=== PATIENT | male | born 1995 | race Caucasian/White ===

== ENCOUNTER 2020-05-16 02:33 | Emergency (ER) | payer MEDICAID, SELFPAY ==
[2020-05-16 02:35] VITALS: BP 181/85; PULSE 101; RESP 16; TEMP 36.6; O2SAT 99
--- NOTE | 2020-05-16 02:48 | ED.GENADULT ---
HPI - General Adult General Chief complaint: Dental/Oral Stated complaint: dental pain Time Seen by Provider: 05/16/20 02:43 History of Present Illness HPI narrative: Patient is a 25-year-old gentleman who presents the emergency department with chief complaint of right-sided dental pain. Patient states that he had 2 of his wisdom teeth come in and reports that the areas have become painful and he has pain in his right temporomandibular joint. Patient states the area feels swollen hurts whenever he chews. The patient denies fever denies chills denies nausea or vomiting. Related Data Allergies Allergy/AdvReac Type Severity Reaction Status Date / Time No Known Allergies Allergy Verified 05/16/20 02:45 Review of Systems Review of Systems: Narrative: A 10 system review of systems was completed on the patient and is negative except for what is stated in the HPI. Nursing and ancillary documentation was reviewed. PMFSH Comments Patient denies significant past medical history Social history the patient vapes Exam Narrative: Exam Narrative: GENERAL: Well-appearing, well-nourished, and in no acute distress. HEAD: Normocephalic, atraumatic. EYES: PERRLA and EOMI. ENT: Nares clear, no rhinorrhea or epistaxis. Mucous membranes moist. There are impacted wisdom teeth in the upper and lower molars on the right. There is tenderness to palpation of the right temporomandibular joint NECK: Supple. CHEST: Clear to auscultation. No respiratory distress. HEART: Regular rate and rhythm. No murmur heard. Normal peripheral pulses. ABDOMEN: Soft, nontender, nondistended, normal active bowel sounds. EXTREMITIES: Normal range of motion. No edema. SKIN: Warm, dry, no rash. NEURO: No focal deficits. Alert and oriented x3. PSYCH: Normal mood and affect. Course Vital Signs Vital signs: Vital Signs Temperature 36.6 C 05/16/20 02:35 Pulse Rate 101 H 05/16/20 02:35 Respiratory Rate 16 05/16/20 02:35 Blood Pressure 181/85 H 05/16/20 02:35 Pulse Oximetry 99 05/16/20 02:35 Temperature 36.6 C 05/16/20 02:35 Pulse Rate 101 H 05/16/20 02:35 Respiratory Rate 16 05/16/20 02:35 Blood Pressure 181/85 H 05/16/20 02:35 Pulse Oximetry 99 05/16/20 02:35 Medical Decision Making Vital Signs Vital Signs: Vital Signs Temperature 36.6 C 05/16/20 02:35 Pulse Rate 101 H 05/16/20 02:35 Respiratory Rate 16 05/16/20 02:35 Blood Pressure 181/85 H 05/16/20 02:35 Pulse Oximetry 99 05/16/20 02:35 Temperature 36.6 C 05/16/20 02:35 Pulse Rate 101 H 05/16/20 02:35 Respiratory Rate 16 05/16/20 02:35 Blood Pressure 181/85 H 05/16/20 02:35 Pulse Oximetry 99 05/16/20 02:35 Discharge Plan Discharge Clinical Impression: Toothache Patient Disposition: Home, Self-Care Condition: Stable Instructions: Antibiotic Form, Toothache (ED) Additional Instructions: Please follow-up with a dentist as soon as possible Prescriptions: New amoxicillin 500 mg capsule 500 mg PO Q12H Qty: 20 RF: 0 ibuprofen 800 mg tablet 800 mg PO TID PRN (Reason: pain) Qty: 30 RF: 0 Follow-up/Referrals: Cliff Cruz Jr., MD [Physician] - PHYSICIAN,ASSISTANT RESEARCH SCIENTIST [Primary Care Provider] - Time of Disposition: 02:51
[2020-05-16] MEDS: IBUPROFEN 400 MG TABLET 800 MG PO (02:52)
[2020-05-16] MEDS: HYDROcodone/acetaminophen (*CRX) 5-325 MG TABLET 1 TAB PO (02:53)
== END 2020-05-16 03:05 | disposition home or self-care (01) ==
LOC: ANHED 02:57
PROVIDERS: Emergency Provider Emergency Medicine
DX: K08.89 Other specified disorders of teeth and supporting structures (principal); F17.290 Nicotine dependence, other tobacco product, uncomplicated
CPT/HCPCS: 99283; A9270

== ENCOUNTER 2020-06-04 19:31 | Emergency (ER) | payer MEDICAID, SELFPAY ==
--- NOTE | 2020-06-04 19:38 | ED.DENTAL ---
HPI - Dental/Oral General Chief complaint: Dental/Oral Stated complaint: wisdom teeth pain Time Seen by Provider: 06/04/20 19:38 Source: patient and RN notes reviewed History of Present Illness HPI Narrative: Patient is a 25-year-old male who presents the urgent care with complaints of wisdom tooth pain . Patient states that is been ongoing for the last couple months and he has been trying to be seen to get them removed. Patient states he has a severe gag reflex and cannot been removed at the normal dental office. Patient states that he was just excepted through Medicaid and is on the list at [facility] to have them removed. Patient states that he was on Tylenol with codeine from his original dentist and has ran out of the medication. Patient denies of any fever, chills, nausea, vomiting, facial swelling. No other acute complaints. No acute distress noted. Patient aware of the plan of care. Some parts of this dictation were generated by voice recognition software and may contain typographical and/or grammatical inaccuracies. Related Data Home Medications Medication Instructions Recorded Confirmed No Home Medications 06/04/20 06/04/20 Allergies Allergy/AdvReac Type Severity Reaction Status Date / Time No Known Allergies Allergy Verified 06/04/20 19:49 Review of Systems Review of Systems: Narrative: CONSTITUTIONAL: Denies fever, chills, or sweats. EYES: Denies visual changes, redness, or discharge. ENT: Denies rhinorrhea, congestion, sore throat, or otalgia. Reports of right upper and lower wisdom tooth pain CARDIOVASCULAR: Denies chest pain, palpitations, or edema. RESPIRATORY: Denies cough or dyspnea. GASTROINTESTINAL: Denies abdominal pain, nausea, vomiting, or diarrhea. GENITOURINARY: Denies dysuria or hematuria. SKIN: Denies rash or itching. MUSCULOSKELETAL: Denies back pain, joint pain, or myalgia. NEUROLOGIC: Denies headache, numbness, or weakness. All other systems reviewed are negative, except as documented in HPI. PMFSH Comments At the time of my signature, I reviewed and agree with the nursing past medical, surgical, social, and family history. There is no relevant family history pertinent to the patient complaint. Exam Narrative: Exam Narrative: GENERAL: This is a well-nourished, well-developed patient, in no apparent distress. HEAD: normocephalic, atraumatic. EYES: PERRL. Sclera clear/white. Vision is grossly intact. EARS: External ears normal NOSE: External nose normal with no obvious nasal discharge, nares without redness, no rhinorrhea. THROAT: Mucous membranes moist, posterior pharynx clear. DENTAL: Notable impacted upper right wisdom tooth with possible impaction of lower right wisdom tooth without any notable abscess or surrounding erythema or edema NECK: Neck supple, non-tender without lymphadenopathy SKIN: warm, intact with no suspicious lesions or rash, good texture and turgor. NEURO: awake, alert, and oriented to person, place and time. There were no obvious focal neurologic abnormalities. EXTREMITIES: No clubbing, cyanosis, or edema. Course Vital Signs Vital signs: Vital Signs Temperature 98.2 F 06/04/20 19:41 Pulse Rate 103 H 06/04/20 19:41 Respiratory Rate 18 06/04/20 19:41 Blood Pressure 154/61 H 06/04/20 19:41 Pulse Oximetry 100 06/04/20 19:41 Temperature 98.2 F 06/04/20 19:41 Pulse Rate 103 H 06/04/20 19:41 Respiratory Rate 18 06/04/20 19:41 Blood Pressure 154/61 H 06/04/20 19:41 Pulse Oximetry 100 06/04/20 19:41 Reviewed-patient is informed that they may have pre-hypertension or hypertension based on a blood pressure reading in the department. I recommend the patient call the primary care provider listed on their discharge instructions or a physician of their choice this week to arrange follow-up for further evaluation of possible pre-hypertension or hypertension. MDM - Dental/Oral MDM Narrative Medical decision making narrative: Spoke t
[2020-06-04 19:41] VITALS: BP 154/61; PULSE 103; RESP 18; TEMP 36.8; O2SAT 100
== END 2020-06-04 19:52 | disposition home or self-care (01) ==
PROVIDERS: Emergency Provider Nurse Practitioner Family
DX: K08.89 Other specified disorders of teeth and supporting structures (principal)
CPT/HCPCS: 99211; G0463

== ENCOUNTER 2020-06-04 20:26 | Emergency (ER) | payer MEDICAID, SELFPAY ==
[2020-06-04 20:30] VITALS: BP 151/76; PULSE 95; RESP 16; TEMP 36.5; O2SAT 99
--- NOTE | 2020-06-04 20:49 | ED.DENTAL ---
HPI - Dental/Oral General Chief complaint: Dental/Oral Stated complaint: wisdom tooth pain Time Seen by Provider: 06/04/20 20:35 Source: patient Mode of arrival: ambulatory Limitations: no limitations History of Present Illness HPI Narrative: Patient is a 25-year-old male who presents complaining of right sided dental pain. Patient reports intermittent pain with wisdom teeth for a while . Patient reports recent insurance change and appointment with dentist in June. He denies all other complaints at this time. MD Complaint: tooth pain Related Data Home Medications Medication Instructions Recorded Confirmed No Home Medications 06/04/20 06/04/20 Allergies Allergy/AdvReac Type Severity Reaction Status Date / Time No Known Allergies Allergy Verified 06/04/20 19:49 Review of Systems Review of Systems: Narrative: CONSTITUTIONAL: Denies fever, chills, or sweats. EYES: Denies visual changes, redness, or discharge. ENT: Reports right-sided dental pain CARDIOVASCULAR: Denies chest pain, palpitations, or edema. RESPIRATORY: Denies cough or dyspnea. GASTROINTESTINAL: Denies abdominal pain, nausea, vomiting, or diarrhea. GENITOURINARY: Denies dysuria or hematuria. SKIN: Denies rash or itching. MUSCULOSKELETAL: Denies back pain, joint pain, or myalgia. NEUROLOGIC: Denies headache, numbness, dizziness, or weakness. PSYCHIATRIC: Denies anxiety or depression. [facility] Social History Social History Smoking status: Current every day smoker Tobacco type: e-cigarettes/vaping Alcohol intake: current Alcohol use details: occasional Substance use: never Comments At the time of signature, I have reviewed and agree with nursing past medical, surgical, social, and family history unless otherwise noted. Please see nursing chart for further information. There is no relevant family history pertinent to the presenting complaint. Exam Narrative: Exam Narrative: GENERAL: Well-appearing, well-nourished, and in no acute distress. HEAD: Normocephalic, atraumatic. EYES: No redness or drainage. ENT: Mucous membranes pink and moist. Throat normal. Uvula midline. Multiple dental caries and fractures noted. NECK: AROM. Supple. No lymphadenopathy. CHEST: No respiratory distress. HEART: Regular rate and rhythm. EXTREMITIES: Normal range of motion. SKIN: Warm, dry, no rash. NEURO: No focal deficits. Alert and oriented x3. Gait steady. PSYCH: Normal affect. No signs of depression or anxiety. Course Vital Signs Vital signs: Vital Signs Temperature 36.5 C 06/04/20 20:30 Pulse Rate 95 06/04/20 20:30 Respiratory Rate 16 06/04/20 20:30 Blood Pressure 151/76 H 06/04/20 20:30 Pulse Oximetry 99 06/04/20 20:30 Temperature 36.5 C 06/04/20 20:30 Pulse Rate 95 06/04/20 20:30 Respiratory Rate 16 06/04/20 20:30 Blood Pressure 151/76 H 06/04/20 20:30 Pulse Oximetry 99 06/04/20 20:30 Reviewed. Patient has been instructed to follow-up with his PCP regarding his blood pressure. MDM - Dental/Oral MDM Narrative Medical decision making narrative: Patient most likely has dental infection. Patient be treated with antibiotics. Discussed nonnarcotic pain medication and follow-up with dentist as soon as possible. Patient agrees with plan of care. Patient is stable for discharge to home with outpatient follow-up as discussed. Differential Diagnosis Differential diagnosis: Likely dental caries, toothache, dental abscess and fracture of tooth Medical Records Attestation: I reviewed the patient's medical records. Critical Care Time Critical Care Time Critical Care Time: No Discharge Plan Discharge Clinical Impression: Toothache Patient Disposition: Home, Self-Care Condition: Stable Instructions: Antibiotic Form, Dental Abscess (ED), Toothache (ED) Additional Instructions: Take medication as directed. Follow-up with your dentist as so
== END 2020-06-04 21:19 | disposition home or self-care (01) ==
PROVIDERS: Emergency Provider Nurse Practitioner
DX: K08.89 Other specified disorders of teeth and supporting structures (principal); F17.290 Nicotine dependence, other tobacco product, uncomplicated; R03.0 Elevated blood-pressure reading, without diagnosis of hypertension
CPT/HCPCS: 99281